=== PATIENT | male | born 1940 | race Caucasian/White ===

== ENCOUNTER → 2020-08-27 15:02 | Outpatient (CLI) | payer BC, SELFPAY ==
[2020-08-29 09:57] LABS: Covid-19 Nasal PCR Sendout Lex NOT DETECTED
== END ==
PROVIDERS: PCP Internal Medicine Interventional Cardiology; Visit Provider Internal Medicine Interventional Cardiology
DX: Z01.818 Encounter for other preprocedural examination (principal)
CPT/HCPCS: U0004